=== PATIENT | female | born 1955 | race American Indian/Alaskan Native ===

== ENCOUNTER 2019-06-21 09:30 | Emergency (ER) | payer OTHER ==
[2019-06-21 10:10] VITALS: BP 156/90
[2019-06-21] MEDS ORDERED: IBUPROFEN PO ONE (10:19)
--- NOTE | 2019-06-21 10:25 | Emergency Department Report ---
ED Lower Extremity HPI - General Chief Complaint: Extremity Injury, Lower Stated Complaint: FALL Time Seen by Provider: 06/21/19 10:15 Source: patient Mode of arrival: Wheelchair Limitations: No Limitations - History of Present Illness Initial Comments: Mrs. Dinh is a 64-year-old female with history of hypertension who tripped. She tripped over a curb and fell into both hands. She also fell directly onto fell onto her left knee. She arrived per EMS. She is afraid to stand or walk on the knee due to severe pain. She has a small abrasion at the left knee. MD Complaint: knee injury -: Sudden, days(s) (3) Injury: Knee: Left Type of Injury: blunt Place: street/outdoors Severity: severe Severity scale (0 -10): 8 Worsens With: movement, palpation Context: fall, direct blow - Related Data Previous Rx's Medication Instructions Recorded Last Taken Type HYDROcodone/APAP 5-325 [[place] 1 each PO Q6HR PRN #10 tablet 06/21/19 Unknown Rx 5/325] Ibuprofen [Motrin 800 MG tab] 800 mg PO TID PRN #15 tablet 06/21/19 Unknown Rx Allergies Allergy/AdvReac Type Severity Reaction Status Date / Time No Known Allergies Allergy Verified 06/21/19 10:28 ED Review of Systems ROS: Stated complaint: FALL Other details as noted in HPI Constitutional: denies: fever, malaise Cardiovascular: denies: chest pain Musculoskeletal: arthralgia Skin: rash, lesions ED Past Medical Hx - Past Medical History Previous Medical History?: Yes Hx Hypertension: Yes - Surgical History Past Surgical History?: No - Social History Smoking Status: Never Smoker Substance Use Type: None - Medications Home Medications: Home Medications Medication Instructions Recorded Confirmed Last Taken Type HYDROcodone/APAP 5-325 [[place] 1 each PO Q6HR PRN #10 tablet 06/21/19 Unknown Rx 5/325] Ibuprofen [Motrin 800 MG tab] 800 mg PO TID PRN #15 tablet 06/21/19 Unknown Rx ED Physical Exam - General Limitations: No Limitations General appearance: alert, in no apparent distress - Head Head exam: Present: atraumatic, normocephalic - Eye Eye exam: Present: normal appearance - Neck Neck exam: Present: normal inspection, full ROM - Extremities Exam Extremities exam: Present: full ROM, other (diffuse left knee pain, no laxity, a ble to extend and flex) - Expanded Lower Extremity Exam Left Knee exam: Present: full ROM, tenderness, abrasion, full knee extension. Absent: swelling, laceration, ecchymosis, deformity, crepidus, dislocation, erythema, effusion Lower Leg exam: Present: normal inspection, full ROM Ankle exam: Present: normal inspection, full ROM Foot/Toe exam: Present: normal inspection, full ROM ED Course Vital Signs 06/21/19 09:48 Temperature 98.3 F Pulse Rate 76 Respiratory 16 Rate Blood Pressure 156/90 [Left] O2 Sat by Pulse 99 Oximetry ED Lower Extremity MDM - Radiology Data Radiology results: report reviewed Left knee radiographs, no fracture and no subluxation no acute process according to radiology report positive DJD - Medical Decision Making Mrs. Dinh presents with left knee injury after fall onto pavement. Diagnosis knee contusion, knee sprain. Given crutches for comfort. Prescribed ibuprofen and referred to orthopedic surgeon. Critical care attestation.: If time is entered above; I have spent that time in minutes in the direct care of this critically ill patient, excluding procedure time. ED Disposition Clinical Impression: Left knee sprain, Contusion of left knee Disposition: - TO HOME OR SELFCARE Is pt being admited?: No Does the pt Need Aspirin: No Condition: Stable Instructions: Knee Sprain (ED), Knee Pain (ED) Prescriptions: Ibuprofen [Motrin 800 MG tab] 800 mg PO TID PRN #15 tablet PRN Reason: Pain , Severe (7-10) HYDROcodone/APAP 5-325 [[place] 5/325] 1 each PO Q6HR PRN #10 tablet PRN Reason: Pain Referrals: RAQUEL SOTO MD [Staff Physician] - 3-5 Days
[2019-06-21] MEDS ORDERED: NORCO 5/325 PO ONE (10:28)
[2019-06-21] MEDS ORDERED: NORCO 5/325 ONE (10:29)
--- NOTE | 2019-06-21 11:17 | XRay Report ---
XR knee 3V LT INDICATION / CLINICAL INFORMATION: knee pain fall. COMPARISON: None available. FINDINGS: BONES/JOINT(S): No acute fracture or subluxation. Mild tricompartment DJD. No significant joint effus ion. SOFT TISSUES: No significant abnormality. ADDITIONAL FINDINGS: None. Signer Name: Iván Melendez MD Signed: 06/21/2019 11:12 AM Workstation Name: [email or web address]
== END 2019-06-21 11:58 | disposition home or self-care (01) ==
LOC: ED 09:30
DX: S83.92XA Sprain of unspecified site of left knee, initial encounter (principal); S80.02XA Contusion of left knee, initial encounter; I10 Essential (primary) hypertension; W01.0XXA Fall on same level from slipping, tripping and stumbling without subsequent striking against object, initial encounter; Y93.89 Activity, other specified; Y92.410 Unspecified street and highway as the place of occurrence of the external cause; Y99.8 Other external cause status